=== PATIENT | male | born 1975 | race Caucasian/White ===

== ENCOUNTER 2016-08-18 09:10 | Emergency (ER) | payer OTHER | END 2016-08-18 10:20 | disposition home or self-care (01) | LOC: ER1 09:10 | DX: L02.414 Cutaneous abscess of left upper limb (principal); F17.200 Nicotine dependence, unspecified, uncomplicated | CPT/HCPCS: 10061; 99283 ==

== ENCOUNTER 2016-08-19 11:37 | Emergency (ER) | payer OTHER | END 2016-08-19 12:15 | disposition home or self-care (01) | LOC: ER1 11:37 | DX: L02.414 Cutaneous abscess of left upper limb (principal); F17.210 Nicotine dependence, cigarettes, uncomplicated | CPT/HCPCS: 99282 ==

== ENCOUNTER 2016-09-04 03:14 | Emergency (ER) | payer OTHER ==
[2016-09-04 05:36] LABS: HEMOGLOBIN 13.7 gm/dl (14.0-17.5); RED BLOOD COUNT 4.36 M/UL (4.20-5.50); WHITE BLOOD COUNT 9.3 K/UL (4.5-11.0)
[2016-09-04 06:00] LABS: BUN/CREATININE RATIO 22 (0-10)
== END 2016-09-04 10:18 | disposition home or self-care (01) ==
LOC: ER1 03:14
PROVIDERS: Student in an Organized Health Care Education/Training Program
DX: S00.83XA Contusion of other part of head, initial encounter (principal); F19.10 Other psychoactive substance abuse, uncomplicated; R74.8 Abnormal levels of other serum enzymes; W19.XXXA Unspecified fall, initial encounter; Y92.524 Gas station as the place of occurrence of the external cause
CPT/HCPCS: 36415; 70450; 71010; 71260; 72125; 72128; 72131; 72170; 80053; 80307; 81001; 82140; 82550; 82553; 83605; 83690; 83874; 84484; 85025; 85610; 85730; 87086; 93005; 99285; G0480; J2310; J7030; J7050; Q9962

== ENCOUNTER 2016-10-04 13:24 | Emergency (ER) | payer OTHER | END 2016-10-04 15:30 | LOC: ER1 13:24 | DX: Z00.8 Encounter for other general examination (principal); F17.200 Nicotine dependence, unspecified, uncomplicated | CPT/HCPCS: 99283 ==

== ENCOUNTER 2020-10-05 17:49 | Emergency (ER) | payer OTHER ==
[~2020-10-05 17:49] MED LIST: BACTRIM DS TAB1 EACH PO; CEPHALEXIN500 MG PO; CLEOCIN HCL300 MG PO; IBUPROFEN600 MG PO; NORCO 5-325 TA1 EACH PO; Viscous lidocaine2% TOP
[2020-10-05] MEDS ORDERED: BACTRIM DS TAB1 EACH PO (18:53)
[2020-10-05] MEDS ORDERED: CEPHALEXIN500 MG PO (18:53)
== END 2020-10-05 19:04 | disposition home or self-care (01) ==
LOC: ER1 17:49
DX: L03.113 Cellulitis of right upper limb (principal); F17.200 Nicotine dependence, unspecified, uncomplicated; Z86.19 Personal history of other infectious and parasitic diseases; Z23 Encounter for immunization
CPT/HCPCS: 73090; 90471; 90715; 96372; 99283; J1885

== ENCOUNTER → 2021-12-16 | Outpatient (CLI) | payer OTHER | LOC: EXRD 09:24 | DX: M54.50 Low back pain, unspecified (principal) | CPT/HCPCS: 72100; 73522 ==